=== PATIENT | female | born 2000 | race Caucasian/White ===

== ENCOUNTER 2020-04-08 00:21 | Emergency (ER) | payer SELFPAY ==
[2020-04-08 01:03] LABS: #Basophils 0.1 thou/uL (0.0-0.2); #Eosinphils 0.4 thou/uL (0.0-0.7); #Lymphocytes 3.8 thou/uL (1.20-3.40); #Monocytes 0.6 thou/uL (0.11-0.59); #Neutrophils 4.9 thou/uL (1.40-6.50); %Eosinophils 4.4 % (0.0-10.0); %Lymphocytes 38.6 % (21.0-51.0); %Monocytes 6.5 % (0.0-10.0); %Neutrophils 49.6 % (42.0-75.0); Hemoglobin 12.9 g/dL (12.0-16.0); Mean Corpuscular Hemoglobin 30.4 pg (27.0-31.0); Mean Corpuscular Volume 91.9 fL (78.0-98.0); Mean Platelet Volume 7.5 fL (7.4-10.4); Platelet Count 325 thou/uL (130-400); RBC Distribution Width 11.3 % (11.5-14.5); Red Blood Cell (RBC) Count 4.23 mill/uL (4.20-5.40); White Blood Cell (WBC) Count 9.8 thou/uL (4.8-10.8)
[2020-04-08 01:04] LABS: BHCG - Serum POSITIVE (NEGATIVE); Pregs Control Background? CLEAR/WHITE (CLR/WHITE); Pregs Control Bar Appear? YES (CONTROL BAR)
[2020-04-08 01:12] LABS: ALT (SGPT) 11 U/L (8-55); AST (SGOT) 16 U/L (5-34); Albumin 4.1 g/dL (3.5-5.0); Alkaline Phosphatase 65 U/L (40-110); Anion Gap 15 mmol/L (10-20); BUN (Urea Nitrogen) 12 mg/dL (7.0-18.7); Bilirubin, Total 0.2 mg/dL (0.2-1.2); Calc. Creatinine Clearance 0 mL/min (70-130); Calcium 9.1 mg/dL (7.8-10.44); Carbon Dioxide 21 mmol/L (22-29); Chloride 105 mmol/L (98-107); Globulin 2.7 g/dL (2.4-3.5); Glucose 86 mg/dL (70-105); Potassium 3.6 mmol/L (3.5-5.1); Protein, Total 6.8 g/dL (6.0-8.3); Sodium 137 mmol/L (136-145)
[2020-04-08 01:17] LABS: Bacteria/HPF None Seen HPF (None Seen); Bilirubin Negative (Negative); Blood, Urine 3+ (Negative); Clarity Turbid (Clear); Glucose, Urine (Dipstick) Normal (Negative); Ketone, Urine Negative (Negative); Leukocyte Negative Leu/uL (Negative); Nitrite Negative (Negative); Protein, Urine (Dipstick) Negative (Neg-Trace); RBC/HPF Greater than 50 HPF (0-3); Specific Gravity, Urine 1.013 (1.002-1.036); Squamous Epithelial 0-3 HPF (0-3); Urobilinogen Normal mg/dL (Less than 2); WBC/HPF 21-50 HPF (0-3)
--- NOTE | 2020-04-08 09:44 | ULT ---
ULTRASOUND PELVIC ULTRASOUND TRANSVAGINAL DOPPLER DUPLEX: DATE: 04/08/2020 HISTORY: 14-year-old female with first trimester heavy vaginal bleeding. 10 weeks gestational age by LMP. TECHNIQUE: Transabdominal transducer and endovaginal transducer used to visualize intrapelvic contents with erazo scale, color-flow, and spectral analysis. FINDINGS: At the uterine fundus eccentrically position to the left, there is an irregularly-shaped intrauterine gestational sac measuring 1.7 x 0.7 x 1.1 cm. Mean sac diameter 1.2 cm: Estimated gestational age of 6 weeks 2 days. No embryonic pole, yolk sac, or cardiac activity detected. No subchorionic hemorrhage. No free fluid in the cul-de-sac. Bilateral ovaries normal in size with blood flow demonstrated. No corpus luteal cyst. IMPRESSION: 1) intrauterine gestational sac visualized, but no yolk sac or embryonic pole detected. 2) Recommend follow-up pelvic and transvaginal ultrasound in 14 days.
== END 2020-04-08 02:36 | disposition home or self-care (01) ==
LOC: ERS 00:21
DX: O03.4 Incomplete spontaneous abortion without complication (principal)
CPT/HCPCS: 36415; 76856; 80053; 81003; 81015; 84702; 84703; 85025; 86900; 86901

== ENCOUNTER 2020-04-09 20:04 | Emergency (ER) | payer SELFPAY ==
--- NOTE | 2020-04-09 21:31 | ULT ---
Exam: Transabdominal and endovaginal pelvic ultrasound HISTORY:Follow-up from previous exam. Possible miscarriage. Pelvic pain with heavy bleeding and clots last night. Continued bleeding today. COMPARISON:04/08/2020 TECHNIQUE: Transabdominal and endovaginal imaging of the pelvis is performed. Ovaries are interrogate d with grayscale, color flow, Doppler imaging and spectral wave form analysis FINDINGS: Uterus: No myometrial masses. Uterus measurin.9 x 5.0 x 6.2 cm. Endometrium: Within heterogeneous. The lower uterine segment has heterogeneous echotexture with vascu larity, measuring 2.4 x 3.6 x 1.9 cm. At the level of fundus, there is an anechoic focus without evidence of a pole or yolk sac. Free fluid: None Right ovary: Normal echotexture Right ovary measurement: 3.2 x 1.5 x 1.9 cm Left ovary: Normal echotexture. Left ovary measurements: 3.2 x 2.0 x 2.4 cm Ovarian Doppler: There is vascular flow to the left and right ovary. IMPRESSION: 1. Anechoic focus in the endometrium at the level uterine fundus. Findings may represent a empty gest ational sac. No evidence of a yolk sac or pole. 2. Interval development of a heterogeneous echotexture focus in the lower uterine segment with vascul arity. Findings may represent active bleeding and blood products. The possibility of a active spontaneous is raised. Follow-up ultrasound and serial beta-hCGs are recommended.
== END 2020-04-09 22:27 | disposition home or self-care (01) ==
LOC: ERS 20:04
DX: O03.9 Complete or unspecified spontaneous abortion without complication (principal)
CPT/HCPCS: 36415; 76856; 84702

== ENCOUNTER 2020-04-13 18:50 | Emergency (ER) | payer OTHER, SELFPAY | END 2020-04-13 20:30 | disposition home or self-care (01) | LOC: ERS 18:50 | DX: O03.9 Complete or unspecified spontaneous abortion without complication (principal) | CPT/HCPCS: 36415; 84702; 99284 ==

== ENCOUNTER 2020-12-05 19:09 | Emergency (ER) | payer OTHER ==
[~2020-12-05 19:09] MED LIST: Iopamidol-370 76% 500 ML 1 ML ONE
[2020-12-05 19:54] LABS: #Basophils 0.1 thou/uL (0.0-0.2); #Eosinphils 0.2 thou/uL (0.0-0.7); #Lymphocytes 2.5 thou/uL (1.20-3.40); #Monocytes 0.8 thou/uL (0.11-0.59); #Neutrophils 3.8 thou/uL (1.40-6.50); %Basophils 1.4 % (0.0-1.0); %Lymphocytes 33.4 % (21.0-51.0); %Monocytes 10.8 % (0.0-10.0); %Neutrophils 51.5 % (42.0-75.0); Hemoglobin 14.2 g/dL (12.0-16.0); Mean Corpuscular HGB CONC 33.5 g/dL (32.0-36.0); Mean Corpuscular Hemoglobin 30.5 pg (27.0-31.0); Mean Corpuscular Volume 91.1 fL (78.0-98.0); Mean Platelet Volume 7.9 fL (7.4-10.4); Platelet Count 340 thou/uL (130-400); RBC Distribution Width 12.4 % (11.5-14.5); Red Blood Cell (RBC) Count 4.64 mill/uL (4.20-5.40); White Blood Cell (WBC) Count 7.4 thou/uL (4.8-10.8)
[2020-12-05 20:01] LABS: BHCG - Serum Negative (NEGATIVE); Pregs Control Background? CLEAR/WHITE (CLR/WHITE); Pregs Control Bar Appear? YES (CONTROL BAR)
[2020-12-05 20:06] LABS: Bilirubin Negative (Negative); Blood, Urine Negative (Negative); Clarity Clear (Clear); Glucose, Urine (Dipstick) Normal (Negative); Ketone, Urine Negative (Negative); Leukocyte Negative Leu/uL (Negative); Nitrite Negative (Negative); Protein, Urine (Dipstick) Negative (Neg-Trace); Specific Gravity, Urine 1.008 (1.002-1.036); Urobilinogen Normal mg/dL (Less than 2)
[2020-12-05 20:19] LABS: ALT (SGPT) 10 U/L (8-55); AST (SGOT) 16 U/L (5-34); Albumin 4.4 g/dL (3.5-5.0); Alkaline Phosphatase 76 U/L (40-110); Anion Gap 14 mmol/L (10-20); BUN (Urea Nitrogen) 10 mg/dL (7.0-18.7); Bilirubin, Total 0.4 mg/dL (0.2-1.2); Calc. Creatinine Clearance 0 mL/min (70-130); Calcium 9.9 mg/dL (7.8-10.44); Carbon Dioxide 26 mmol/L (22-29); Chloride 102 mmol/L (98-107); Globulin 3.4 g/dL (2.4-3.5); Glucose 87 mg/dL (70-105); Lipase 10 U/L (8-78); Potassium 4.7 mmol/L (3.5-5.1); Protein, Total 7.8 g/dL (6.0-8.3); Sodium 137 mmol/L (136-145)
== END 2020-12-05 23:45 | disposition home or self-care (01) ==
LOC: ERS 19:09
DX: N83.202 Unspecified ovarian cyst, left side (principal)
CPT/HCPCS: 36415; 74177; 80053; 81003; 83690; 84703; 85025; Q9967

== ENCOUNTER 2022-01-13 00:09 | Emergency (ER) | payer OTHER | END 2022-01-13 00:14 | disposition left against medical advice (07) | LOC: ERS 00:09 | DX: Z53.21 Procedure and treatment not carried out due to patient leaving prior to being seen by health care provider (principal) ==